=== PATIENT | male | born 1995 | race Caucasian/White ===

== ENCOUNTER 2023-11-06 06:07 | Emergency (ER) | payer OTHER, SELFPAY ==
--- NOTE | ~2023-11-06 | XR_ITS ---
Left ankle Technique: AP and lateral views were obtained. Clinical History: Pain Findings: No acute fracture or dislocation is seen. Osseous alignment is anatomic. Ankle mortise and other visualized joint spaces are preserved. Soft tissues are otherwise unremarkable. Impression: Unremarkable left ankle. Reviewed, dictated and finalized at location . RING DIRECTOR Impression: Unremarkable left ankle.
[2023-11-06 06:10] VITALS: BP 123/69; PULSE 116; RESP 20; TEMP 36.4; O2SAT 97
[2023-11-06 06:55] VITALS: BP 143/89; PULSE 110; RESP 15; TEMP 37.2; O2SAT 98
--- NOTE | 2023-11-06 07:30 | ED.LOWEXIN ---
HPI - Extremity Injury (Lower) General Chief Complaint: Extremity Injury, Lower Stated Complaint: L ankle/foot pain Time Seen by Provider: 11/06/23 07:22 Source: patient Mode of arrival: ambulatory Limitations: no limitations History of Present Illness HPI Narrative: 27-year-old male here with left ankle injury. Tripped and fell while walking out of the house today and twisted his left ankle. Pain mostly over the dorsal aspect of the left foot. Able to walk but complaining of pain with it. No paresthesias. No other injury. Related Data Allergies Allergy/AdvReac Type Severity Reaction Status Date / Time No Known Allergies Allergy Unverified 04/23/18 15:17 Review of Systems Review of Systems: All systems reviewed & are unremarkable except as noted in HPI and below (HPI) Exam Narrative: Constitutional: Generally well appearing, no acute distress Head: Atraumatic, no deformities. Eyes: Pupils equal, round, and reactive to light. Neck: Supple, no tracheal deviation, no JVD. ENMT: Mucous membranes moist Cardiovascular: S1, S2 auscultated. No murmurs, rubs, or gallops. No S3/S4. Normal Distal pulses. No peripheral edema. Respiratory: Lung sounds equal. No wheezes, rales, or rhonchi. Gastrointestinal: Abdomen was soft, nondistended Musculoskeletal: Normal muscle tone and bulk. Mild tenderness over the dorsum of the left foot. No bony tenderness over the medial or lateral malleolus. Full range of motion of the ankle with mild pain. Skin: No rashes. Neurological: Strength 5/5 in extremities. Distal sensation intact. Mental Status: Awake, alert and oriented x3. Follows commands Course Vital Signs Vital signs: Vital Signs Temperature 36.4 C 11/06/23 06:10 Pulse Rate 116 H 11/06/23 06:10 Respiratory Rate 20 11/06/23 06:10 Blood Pressure 123/69 11/06/23 06:10 Pulse Oximetry 97 11/06/23 06:10 Oxygen Delivery Room Air 11/06/23 06:10 Temperature 37.2 C 11/06/23 06:55 Pulse Rate 110 H 11/06/23 06:55 Respiratory Rate 15 11/06/23 06:55 Blood Pressure 143/89 H 11/06/23 06:55 Pulse Oximetry 98 11/06/23 06:55 Oxygen Delivery Room Air 11/06/23 06:55 MDM - Extremity Injury (Lower) MDM Narrative Medical decision making narrative: 27-year-old male presenting with left ankle injury. Twisted it while walking out of the house today. Denied taking any medication. On exam he has some mild tenderness over the dorsal aspect of left foot. No significant swelling. No significant bony tenderness. Neurovascularly intact distally. X-ray obtained. Given a dose of Motrin. X-ray shows no fracture or abnormality. Suspect sprain. We wrapped in Steve wrap. Given crutches. Pt feeling improved and would like to go home at this point. Return precautions were given to the patient include any new or worsening symptoms or development of and not limited to any chest pain, shortness of breath, lightheadedness, abdominal pain, fevers, chills. Patient understands and agrees. They are to follow-up with her PCP. All questions were answered. Discharge Plan Discharge Clinical Impression: Ankle sprain and strain Patient Disposition: Home, Self-Care Condition: Stable Instructions: Antibiotic Form Follow-up/Referrals: Ronald Sims MD [Physician] - UNKNOWN,DOCTOR [Primary Care Provider] - Time of Disposition: 07:33
[2023-11-06] MEDS: IBUPROFEN 400 MG TABLET PO (07:52)
[2023-11-06 07:56] VITALS: BP 143/89; PULSE 87; RESP 18; TEMP 36.7; O2SAT 100
--- NOTE | 2023-11-06 07:56 | PC.NURSE ---
Pt denied crutches when offered.
== END 2023-11-06 07:58 | disposition home or self-care (01) ==
PROVIDERS: Emergency Provider Emergency Medicine
DX: S93.402A Sprain of unspecified ligament of left ankle, initial encounter (principal); W01.0XXA Fall on same level from slipping, tripping and stumbling without subsequent striking against object, initial encounter
CPT/HCPCS: 73600; 99283; A9270

== ENCOUNTER 2024-08-04 17:01 | Emergency (ER) | payer OTHER, SELFPAY ==
--- NOTE | ~2024-08-04 | XR_ITS ---
XR chest 2V Ordering provider: Inna White APRN History: 28 years Male with . unknown inhalation . Comparison: None. FINDINGS: MEDIASTINUM: The cardiac silhouette is not enlarged. LUNGS: No infiltrates, effusions or pneumothorax. OTHER: No free air under the diaphragm. IMPRESSION: No acute cardiopulmonary pathology. Reviewed, dictated and finalized at location A.
--- NOTE | 2024-08-04 17:08 | ED.GENADULT ---
HPI - General Adult General Chief complaint: Environmental Exposure Stated complaint: toxic powder Time Seen by Provider: 08/04/24 17:04 History of Present Illness HPI narrative: Patient is a 28-year-old male who has no known medical history. 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 They do not know what the powder was. Patient reports he and his co-worker immediately started experiencing burning eyes and coughing. He reports his eyes are still mildly burning and he has a headache. Patient reports he is not flushed his eyes since the encounter. Denies any chest pain, shortness, wheezing, other signs or symptoms of illness. Related Data Allergies Allergy/AdvReac Type Severity Reaction Status Date / Time No Known Allergies Allergy Verified 08/04/24 17:03 Review of Systems Review of Systems: All systems reviewed & are unremarkable except as noted in HPI and below Exam Narrative: GENERAL: Well appearing, well-nourished, non-toxic, in no acute distress. HEAD: Normocephalic, atraumatic. [place] turbinates, no powder noted in nares. NECK: Supple. No adenopathy, no masses. RESPIRATORY: Airway patent, respirations nonlabored. Clear to auscultation bilaterally, no rales, rhonchi, wheezing. CARDIOVASCULAR: Regular rate and rhythm without murmurs, rubs, or gallops. Peripheral pulses 2+ and equal bilaterally. ABDOMINAL: Soft, nontender, nondistended, no hepatosplenomegaly. Normoactive BS. MUSCULOSKELETAL: Moves all extremities. Strength/ROM intact without gross deformities. SKIN: Warm, dry, normal color. No rashes. NEURO: A&O X3. Speech clear. Cranial nerves II-XII grossly intact. No ataxic movements. PSYCHIATRIC: Appropriate mood and affect. Normal interaction. Course Vital Signs Vital signs: Vital Signs Temperature 36.6 C 08/04/24 17:16 Pulse Rate 96 08/04/24 17:16 Respiratory Rate 18 08/04/24 17:16 Blood Pressure 141/91 H 08/04/24 17:16 Pulse Oximetry 99 08/04/24 17:16 Temperature 36.6 C 08/04/24 17:16 Pulse Rate 96 08/04/24 17:16 Respiratory Rate 18 08/04/24 17:16 Blood Pressure 141/91 H 08/04/24 17:16 Pulse Oximetry 99 08/04/24 17:16 Medical Decision Making MDM Narrative Medical decision making narrative: Patient is a 28-year-old male who has no known medical history. 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 They do not know what the powder was. Patient reports he and his co-worker immediately started experiencing burning eyes and coughing. He reports his eyes are still mildly burning and he has a headache. Patient reports he is not flushed his eyes since the encounter. Denies any chest pain, shortness, wheezing, other signs or symptoms of illness. Patient's chest x-ray shows no acute cardiopulmonary conditions. He reports his headache has improved post ibuprofen administration. Patient reports his eyes feel better after having them flushed. His visual acuity was within normal limits for him. Patient agrees to discharge home in verbalizes understanding of coming back with worsening symptoms. Differential Diagnosis Differential Diagnosis: environmental exposure, inhalation, respiratory distress, anxiety Vital Signs Vital Signs: Vital Signs Temperature 36.6 C 08/04/24 17:16 Pulse Rate 96 08/04/24 17:16 Respiratory Rate 18 08/04/24 17:16 Blood Pressure 141/91 H 08/04/24 17:16 Pulse Oximetry 99 08/04/24 17:16 Temperature 36.6 C 08/04/24 17:16 Pulse Rate 96 08/04/24 17:16 Respiratory Rate 18 08/04/24 17:16 Blood Pressure 141/91 H 08/04/24 17:16 Pulse Oximetry 99 08/04/24 17:16 Imaging Data Attestation: I personally reviewed and interpreted this imaging study as follows: My impression: Impressions Chest X-Ray 08/04/24 17:37 IMPRESSION: No acute cardiopulmonary p
[2024-08-04 17:16] VITALS: BP 141/91; PULSE 96; RESP 18; TEMP 36.6; O2SAT 99
[2024-08-04] MEDS: IBUPROFEN 600 MG TABLET PO (18:14)
[2024-08-04 18:57] VITALS: BP 130/78; PULSE 77; RESP 18; TEMP 36.8; O2SAT 99
== END 2024-08-04 18:59 | disposition home or self-care (01) ==
PROVIDERS: Emergency Provider Registered Nurse
DX: H57.89 Other specified disorders of eye and adnexa (principal); R05.9 Cough, unspecified; Z77.128 Contact with and (suspected) exposure to other hazards in the physical environment
CPT/HCPCS: 71046; 99283; A9270

== ENCOUNTER 2024-08-23 14:35 | Emergency (ER) | payer OTHER, SELFPAY ==
[2024-08-23 14:58] VITALS: BP 145/85; PULSE 98; RESP 16; TEMP 36.4; O2SAT 98
--- NOTE | 2024-08-23 15:49 | PC.NURSE ---
Patient up to desk stating he was leaving. Patient amb out of ED with steady gait and in no acute distress.
== END 2024-08-23 16:00 | disposition left against medical advice (07) ==
DX: M79.675 Pain in left toe(s) (principal)
CPT/HCPCS: 99199